=== PATIENT | female | born 1980 | race Caucasian/White ===

== ENCOUNTER 2018-11-10 20:55 | Emergency (ER) | payer OTHER ==
[~2018-11-10] VITALS: Ht 162.6 cm; Wt 78.1 kg
[2018-11-10 21:02] VITALS: Ht 162.6 cm; Wt 78.1 kg
[2018-11-10 23:52] VITALS: BP 132/85
== END 2018-11-10 23:52 | disposition home or self-care (01) ==
LOC: ED 20:55
DX: R51 Headache (principal); R20.2 Paresthesia of skin; Z88.0 Allergy status to penicillin
CPT/HCPCS: J2765

== ENCOUNTER 2018-11-19 18:34 | Emergency (ER) | payer OTHER ==
[~2018-11-19] VITALS: Ht 162.6 cm; Wt 75.7 kg
[2018-11-19 19:14] VITALS: Ht 162.6 cm; Wt 75.7 kg
[2018-11-19 20:16] LABS: BASOPHIL % 0.3 % (0-2); PLATELET COUNT 373 x10^3mcL (130-400)
[2018-11-19 20:17] LABS: RED CELL DISTRIBUTION WIDTH 16.9 % (11.5-14.5)
[2018-11-19 20:29] LABS: CALCIUM 9.2 mg/dL (8.5-10.1); CHLORIDE SERUM 103 mmol/L (98-107); CREATININE SERUM 0.8 mg/dL (0.6-1.0); GFR1 > 60 mL/min; GLUCOSE SERUM 125 mg/dL (74-106); POTASSIUM SERUM 4.1 mmol/L (3.5-5.1); SODIUM SERUM 139 mmol/L (136-145)
[2018-11-19 20:34] LABS: ALBUMIN 3.9 g/dL (3.4-5.0); ALKALINE PHOSPHATASE 93 U/L (46-116); ALT/SGPT 35 U/L (14-59); AST/SGOT 19 U/L (15-37); BILIRUBIN TOTAL 0.3 mg/dL (0.20-1.00); TOTAL PROTEIN, SERUM 8.1 g/dL (6.4-8.2)
[2018-11-19 23:21] VITALS: BP 124/79
== END 2018-11-19 23:21 | disposition home or self-care (01) ==
LOC: ED 18:34
PROVIDERS: Emergency Medicine
DX: T88.7XXA Unspecified adverse effect of drug or medicament, initial encounter (principal); R51 Headache; R19.7 Diarrhea, unspecified; R10.9 Unspecified abdominal pain; E11.9 Type 2 diabetes mellitus without complications; Z88.0 Allergy status to penicillin; Z98.890 Other specified postprocedural states; Y92.89 Other specified places as the place of occurrence of the external cause
CPT/HCPCS: J2765; J7030